=== PATIENT | female | born 1995 | race Caucasian/White ===

== ENCOUNTER 2018-06-01 15:23 | Emergency (ER) | payer BC ==
[~2018-06-01] VITALS: Ht 165.1 cm; Wt 63.5 kg
[2018-06-01] MEDS ORDERED: CEFTRIAXONE SOD 250 MG VIAL IM ONE (16:00)
[2018-06-01] MEDS ORDERED: METRONIDAZOLE 500 MG TAB PO ONE (16:00)
[2018-06-01] MEDS ORDERED: AZITHROMYCIN 250 MG TAB PO ONE (16:00)
[2018-06-01 16:54] LABS: CLARITY,URINE SL CLOUDY (CLEAR); COLOR,URINE YELLOW (YELLOW); LEUKOCYTE ESTERASE ,URINE TRACE (NEGATIVE); NITRITE,URINE NEGATIVE (NEGATIVE)
[2018-06-01 16:55] LABS: BILIRUBIN,URINE NEGATIVE (NEGATIVE); KETONES,URINE 1+ (NEGATIVE); PREGNANCY TEST, URINE NEGATIVE (NEGATIVE); PROTEIN,URINE DIPSTICK NEGATIVE (NEGATIVE); URINE UROBILINOGEN 0.2 mg/dL (0.2 - 1)
[2018-06-01 17:08] LABS: BACTERIA,URINE MANY /HPF; EPITHELIAL CELLS,URINE MODERATE /LPF; MUCUS,URINE MODERATE (RARE); RBC,URINE 0-5 /HPF (0-5); TRANSITIONAL EPI CELLS,URINE FEW
[2018-06-01] MEDS ORDERED: LIDOCAINE HCL 1% 2 ML AMP ONE (17:24)
[2018-06-01 17:43] VITALS: BP 126/84
== END 2018-06-01 17:42 | disposition home or self-care (01) ==
LOC: ER 15:23
DX: R10.2 Pelvic and perineal pain (principal); N76.0 Acute vaginitis; N39.0 Urinary tract infection, site not specified
CPT/HCPCS: 81001; 81025; 87210; 99284; J0696; J2001